=== PATIENT | female | born 1950 | race Caucasian/White ===

== ENCOUNTER 2017-06-07 10:00 | Outpatient (CLI) | payer OTHER ==
[2017-06-07 10:49] LABS: eGFR (African) > 60; eGFR (Non-African) > 60
== END 2017-06-07 10:30 ==
LOC: LAB 10:00
PROVIDERS: ATTEND Family Medicine
DX: Z00.00 Encounter for general adult medical examination without abnormal findings (principal)
CPT/HCPCS: 36415; 80053; 80061